=== PATIENT | female | born 1990 | race African-American/Black ===

== ENCOUNTER 2016-08-20 12:29 | Emergency (ER) | payer OTHER ==
[~2016-08-20] VITALS: Ht 160 cm; Wt 54.4 kg
[~2016-08-20 12:29] MED LIST: PREN1TAB27 PO
[2016-08-20 12:45] VITALS: BP 130/78
[2016-08-20] MEDS ORDERED: AZITHROMYCIN 250 MG TABLET. PO ONE (13:30)
[2016-08-20] MEDS ORDERED: cefTRIAXone IM 250 MG VIAL IM ONE (13:30)
[2016-08-20] MEDS ORDERED: metroNIDAZOLE 500 MG TABLET PO ONE (13:30)
--- NOTE | 2016-08-20 13:31 | PHYS DOC ---
Past Medical History Past Medical History: No Pertinent History Past Surgical History: Alcohol Use: Occasionally Drug Use: None Adult General Chief Complaint Chief Complaint: VAGINAL PROBLEM HPI HPI Patient is a 26 year old female with no significant medical history who presents today requesting to be tested and treated for STDs. Patient states the previous sexual partner called her and informed her he tested positive for chlamydia. Patient has no symptoms. Review of Systems Review of Systems Constitutional: Denies fever or chills [] Eyes: Denies change in visual acuity, redness, or eye pain [] HENT: Denies nasal congestion or sore throat [] Respiratory: Denies cough or shortness of breath [] Cardiovascular: No additional information not addressed in HPI [] GI: Denies abdominal pain, nausea, vomiting, bloody stools or diarrhea [] : STD testing and treatment Musculoskeletal: Denies back pain or joint pain [] Integument: Denies rash or skin lesions [] Neurologic: Denies headache, focal weakness or sensory changes [] Endocrine: Denies polyuria or polydipsia [] Current Medications Current Medications Current Medications Medications (Trade) Dose Ordered Sig/Evan Start Time Stop Time Status Last Admin Dose Admin Azithromycin (Zithromax) 1,000 mg 1X ONCE 08/20/16 13:30 08/20/16 13:31 DC 08/20/16 13:49 1,000 MG Ceftriaxone Sodium (Rocephin Im) 250 mg 1X ONCE 08/20/16 13:30 08/20/16 13:31 DC 08/20/16 13:50 250 MG Diphenhydramine HCl (Benadryl) 25 mg 1X ONCE 08/20/16 14:15 08/20/16 14:16 DC 08/20/16 13:49 25 MG Metronidazole (Flagyl) 2,000 mg 1X ONCE 08/20/16 13:30 08/20/16 13:31 DC 08/20/16 13:49 2,000 MG Allergies Allergies Allergies Coded Allergies Type Severity Reaction Last Updated Verified Penicillins Allergy Intermediate Itching 08/20/16 Yes Physical Exam Physical Exam Constitutional: Well developed, well nourished, no acute distress, non-toxic appearance. [] HENT: Normocephalic, atraumatic, bilateral external ears normal, oropharynx moist, no oral exudates, nose normal. [] Eyes: PERRLA, EOMI, conjunctiva normal, no discharge. [] Neck: Normal range of motion, no tenderness, supple, no stridor. [] Cardiovascular:Heart rate regular rhythm, no murmur [] Lungs & Thorax: Bilateral breath sounds clear to auscultation [] Abdomen: Bowel sounds normal, soft, no tenderness, no masses, no pulsatile masses. [] Pelvic exam External pelvic appears normal, cervix is closed, no CMT, no vaginal discharge. No adnexal tenderness. Skin: Warm, dry, no erythema, no rash. [] Back: No tenderness, no CVA tenderness. [] Extremities: No tenderness, no cyanosis, no clubbing, ROM intact, no edema. [] Neurologic: Alert and oriented X 3, normal motor function, normal sensory function, no focal deficits noted. [] Psychologic: Affect normal, judgement normal, mood normal. [] Current Patient Data Vital Signs Vital Signs Date Time Temp Pulse Resp B/P (MAP) Pulse Ox O2 Delivery O2 Flow Rate FiO2 08/20/16 12:45 98.4 67 16 99 Room Air 98.4 Lab Values Laboratory Tests Test 08/20/16 12:28 08/20/16 13:00 POC Urine HCG, Qualitative Hcg negative (Negative) Urine Collection Type Unknown Urine Color Yellow Urine Clarity Clear Urine pH 5.5 Urine Specific [place] 1.025 Urine Protein Negative mg/dL (NEG-TRACE) Urine Glucose (UA) Negative mg/dL (NEG) Urine Ketones (Stick) Negative mg/dL (NEG) Urine Blood Negative (NEG) Urine Nitrite Negative (NEG) Urine Bilirubin Negative (NEG) Urine Urobilinogen Dipstick 0.2 mg/dL (0.2 mg/dL) Urine Leukocyte Esterase Trace (NEG) Urine RBC 0 /HPF (0-2) Urine WBC Rare /HPF (0-4) Urine Squamous Epithelial Cells Mod /LPF Urine Bacteria 0 /HPF (0-FEW) Urine Mucus Marked /LPF Microbiology 08/20/16 Wet Prep - Final, Complete EKG EKG [] Radiology/Procedures Radiology/Procedures [] Course & Med Decision Making Course & Med Decision Making Pertinent Labs and Imaging studies reviewed. (See chart for details) Patient is in the ED requesting to be tested and treated for STDs because the previous sex or partner informed her he tested positive for chlamydia. Specimens were sent to lab. Negative urine hCG, she was given Flagyl, Rocephin and azithromycin. Wet prep with no acute findings. Negative urine hCG, urine analysis is negative for infection. Patient was discharged with education on STDs. She was provided return precautions. Dragon Disclaimer Dragon Disclaimer This electronic medical record was generated, in whole or in part, using a voice recognition dictation system. Departure Departure Impression: Primary Impression: Concern about STD in female without diagnosis Disposition: HOME, SELF-CARE Condition: STABLE Referrals: TARIQ MALONEY MD (PCP) Follow-up with the health department for further STD concerns Patient Instructions: Sexually Transmitted Disease, [id number] Additional Instructions: You were seen with STD concerns. You were treated prophylaxis for gonorrhea chlamydia and trichomonas in the ED. Your results will be back in 3 days. We will only call you if your results are positive. We highly recommend you follow- up with the health department for further STD concerns. Call all your partners let them know you were treated for STDs and ask them to seek treatment too. ALINA DOUGHERTY APRN August 20, 2016 13:31
[2016-08-20 14:05] LABS: BILIRUBIN,URINE NEGATIVE (NEG); GLUCOSE,URINE NEGATIVE (NEG); NITRITE,URINE NEGATIVE (NEG); PH,URINE 5.5; PROTEIN,URINE NEGATIVE (NEG-TRACE); UROBILINOGEN,URINE 0.2 mg/dL (0.2 mg/dL)
[2016-08-20] MEDS ORDERED: diphenhydrAMINE HCL 25 MG CAPSULE PO ONE (14:15)
[2016-08-20 14:18] LABS: BACTERIA,URINE 0 /HPF (0-FEW); RBC,URINE 0 /HPF (0-2); SQUAMOUS EPITHELIAL CELL,UR MOD /LPF; WBC,URINE RARE /HPF (0-4)
== END 2016-08-20 14:30 | disposition home or self-care (01) ==
LOC: ER 12:29
DX: Z20.2 Contact with and (suspected) exposure to infections with a predominantly sexual mode of transmission (principal); Z88.0 Allergy status to penicillin
CPT/HCPCS: 81001; 84703; 87491; 87591; 96372; 99284; J0696; Q0111; Q0144; Q0163; 81025

== ENCOUNTER 2018-04-21 07:59 | Emergency (ER) | payer OTHER ==
[~2018-04-21] VITALS: Ht 160 cm; Wt 72.6 kg
--- NOTE | 2018-04-21 08:26 | PHYS DOC ---
Past Medical History Past Medical History: No Pertinent History Past Surgical History: Alcohol Use: Occasionally Drug Use: None Adult General Chief Complaint Chief Complaint: CHEST WALL PAIN HPI HPI Patient is a 28 year old female who presents with left chest wall pain for the last 2 days. She states that it hurts worse when she was getting up from the couch. He states that she was seen 3 weeks ago for this at and was ended up admitted to adult psychiatric floor for depression. States she ate some hot chips and then laid down. Patient states his exam Pepcid that she is once today. Patient states that her naproxen machine take it she took Tylenol last night. Patient states she also has left arm pain that is an ache. Patient states right now the chest pain is still slightly there but the left arm ache is constant. Patient states that the pain has gotten better though. Review of Systems Review of Systems Constitutional: Denies fever or chills [] Eyes: Denies change in visual acuity, redness, or eye pain [] HENT: Denies nasal congestion or sore throat [] Respiratory: Denies cough or shortness of breath [] Cardiovascular: Left chest pain GI: Denies abdominal pain, nausea, vomiting, bloody stools or diarrhea [] : Denies dysuria or hematuria [] Musculoskeletal: Left arm ache Denies back pain or joint pain [] Integument: Denies rash or skin lesions [] Neurologic: Denies headache, focal weakness or sensory changes [] All other systems were reviewed and found to be within normal limits, except as documented in this note. Current Medications Current Medications Current Medications Medications (Trade) Dose Ordered Sig/[facility] Start Time Stop Time Status Last Admin Dose Admin Ketorolac Tromethamine (Toradol 30mg Vial) 30 mg 1X ONCE 04/21/18 08:30 04/21/18 08:31 DC 04/21/18 08:30 30 MG Multi-Ingredient Mouthwash/Gargle (Gi Cocktail) 20 ml 1X ONCE 04/21/18 08:30 04/21/18 08:31 DC 04/21/18 08:30 20 ML Allergies Allergies Allergies Coded Allergies Type Severity Reaction Last Updated Verified Penicillins Allergy Intermediate Itching 08/20/16 Yes Physical Exam Physical Exam Constitutional: Well developed, well nourished, no acute distress, non-toxic appearance. [] HENT: Normocephalic, atraumatic, bilateral external ears normal, oropharynx moist, no oral exudates, nose normal. [] Eyes: PERRLA, EOMI, conjunctiva normal, no discharge. [] Neck: Normal range of motion, no tenderness, supple, no stridor. [] Cardiovascular:Heart rate regular rhythm, no murmur [] Lungs & Thorax: Bilateral breath sounds clear to auscultation [] Abdomen: Bowel sounds normal, soft, no tenderness, no masses, no pulsatile masses. [] Skin: Warm, dry, no erythema, no rash. [] Back: No tenderness, no CVA tenderness. [] Extremities: No tenderness, no cyanosis, no clubbing, ROM intact, no edema. [] Neurologic: Alert and oriented X 3, normal motor function, normal sensory function, no focal deficits noted. [] Psychologic: Affect normal, judgement normal, mood normal. [] Current Patient Data Vital Signs Vital Signs Date Time Temp Pulse Resp B/P (MAP) Pulse Ox O2 Delivery O2 Flow Rate FiO2 04/21/18 08:05 98.2 70 18 117/69 (85) 99 Room Air 98.2 Lab Values Laboratory Tests Test 04/21/18 08:40 04/21/18 08:52 04/21/18 08:55 Urine Collection Type Void Urine Color Yellow Urine Clarity Clear Urine pH 6.5 Urine Specific [place] 1.020 Urine Protein Negative mg/dL (NEG-TRACE) Urine Glucose (UA) Negative mg/dL (NEG) Urine Ketones (Stick) Negative mg/dL (NEG) Urine Blood Negative (NEG) Urine Nitrite Negative (NEG) Urine Bilirubin Negative (NEG) Urine Urobilinogen Dipstick 0.2 mg/dL (0.2 mg/dL) Urine Leukocyte Esterase Negative (NEG) Urine RBC 0 /HPF (0-2) Urine WBC 1-4 /HPF (0-4) Urine Squamous Epithelial Cells Mod /LPF Urine Bacteria Few /HPF (0-FEW) Urine Mucus Mod /LPF Urine Opiates Screen Neg (NEG) Urine Methadone Screen Neg (NEG) Urine Barbiturates Neg (NEG) Urine Phencyclidine Screen Neg (NEG) Urine Amphetamine/Methamphetamine Neg (NEG) Urine Benzodiazepines Screen Neg (NEG) Urine Cocaine Screen Neg (NEG) Urine Cannabinoids Screen Neg (NEG) Urine Ethyl Alcohol Neg (NEG) POC Urine HCG, Qualitative Hcg negative (Negative) White Blood Count 3.6 x10^3/uL (4.0-11.0) L Red Blood Count 3.98 x10^6/uL (3.50-5.40) Hemoglobin 12.3 g/dL (12.0-15.5) Hematocrit 36.5 % (36.0-47.0) Mean Corpuscular Volume 92 fL (79-100) Mean Corpuscular Hemoglobin 31 pg (25-35) Mean Corpuscular Hemoglobin Concent 34 g/dL (31-37) Red Cell Distribution Width 13.9 % (11.5-14.5) Platelet Count 287 x10^3/uL (140-400) Neutrophils (%) (Auto) 51 % (31-73) Lymphocytes (%) (Auto) 38 % (24-48) Monocytes (%) (Auto) 6 % (0-9) Eosinophils (%) (Auto) 5 % (0-3) H Basophils (%) (Auto) 0 % (0-3) Neutrophils # (Auto) 1.8 x10^3uL (1.8-7.7) Lymphocytes # (Auto) 1.4 x10^3/uL (1.0-4.8) Monocytes # (Auto) 0.2 x10^3/uL (0.0-1.1) Eosinophils # (Auto) 0.2 x10^3/uL (0.0-0.7) Basophils # (Auto) 0.0 x10^3/uL (0.0-0.2) Sodium Level 140 mmol/L (136-145) Potassium Level 4.0 mmol/L (3.5-5.1) Chloride Level 102 mmol/L (98-107) Carbon Dioxide Level 28 mmol/L (21-32) Anion Gap 10 (6-14) Blood Urea Nitrogen 15 mg/dL (7-20) Creatinine 0.8 mg/dL (0.6-1.0) Estimated GFR (Cockcroft-Gault) 102.6 BUN/Creatinine Ratio 19 (6-20) Glucose Level 88 mg/dL (70-99) Calcium Level 9.2 mg/dL (8.5-10.1) Total Bilirubin 0.4 mg/dL (0.2-1.0) Aspartate Amino Transferase (AST) 21 U/L (15-37) Alanine Aminotransferase (ALT) 70 U/L (14-59) H Alkaline Phosphatase 75 U/L (46-116) Troponin I Quantitative < 0.017 ng/mL (0.000-0.055) Total Protein 7.3 g/dL (6.4-8.2) Albumin 4.0 g/dL (3.4-5.0) Albumin/Globulin Ratio 1.2 (1.0-1.7) Lipase 84 U/L (73-393) Laboratory Tests 04/21/18 08:55 Laboratory Tests 04/21/18 08:55 EKG EKG Sinus rhythm and no STEMI Interpretation Time: [address] Clarke Radiology/Procedures Radiology/Procedures Chest x-ray Impressions: [facility] [address] [place] [address] IMAGING REPORT Signed PATIENT: CAROLINA AARON ACCOUNT: [id number] : 1990 LOCATION: ER AGE: 28 SEX: F EXAM STATUS: PRE ER ORD. PHYSICIAN: YVONNE BRITO APRN REASON: chest pain PROCEDURE: CHEST PA & LATERAL CHEST PA LATERAL History: Chest pain since Wednesday Comparison: September 25, 2012 Findings: 2 views of the chest are submitted. There is no infiltrate, pneumothorax, or effusion. The cardiac silhouette is within normal limits in size. There is mild reverse S-shaped scoliosis of the thoracolumbar spine. Impression: 1. No acute radiographic abnormality is identified. Electronically signed by: Angelia Dempsey MD (04/21/2018 8:43 AM) [id number] DICTATED and SIGNED BY: ANGELIA DEMPSEY MD DATE: 04/21/18 0842 Course & Med Decision Making Course & Med Decision Making Patient is a 28 year old female who presents with left chest wall pain for the last 2 days. She states that it hurts worse when she was getting up from the couch. He states that she was seen 3 weeks ago for this at and was ended up admitted to adult psychiatric floor for depression. States she ate some hot chips and then laid down. Patient states his exam Pepcid that she is once today. Patient states that her naproxen machine take it she took Tylenol last night. Patient states she also has left arm pain that is an ache. Patient states right now the chest pain is still slightly there but the left arm ache is constant. Patient states that the pain has gotten better though. Alert and oriented. Skin pink warm and dry. Afebrile. Vital Signs are within normal limits. Mucous membranes are moist. Abdomen is soft and nontender. Chest pain is nonreproducible. She denies cough. Lungs are clear to auscultation in all lobes. Heart rate is regular without murmur. She denies any recent illness, smoking, drug use, any hormone use. There is no tenderness in her calves and no extremity swelling or pain. Patient is able try with a steady gait. She denies dizziness, shortness of air, numbness or tingling. PERRLA. Neurologically intact. Rates her pain 9 out of 10 and doesn't radiate. Patient denies nausea, vomiting, diaphoresis, diarrhea. PERC negative. EKG shows sinus rhythm. Chest x-ray shows no acute findings. Urine shows no infection and she is UCG negative. Blood work unremarkable. Patient has nonspecific chest pain and GERD. She should to stay aways from spicy or fried foods. Start taking Pepcid once in the morning and once in the evening. Follow up with primary care. Dean Disclaimer Dragon Disclaimer This electronic medical record was generated, in whole or in part, using a voice recognition dictation system. Departure Departure Impression: Primary Impression: Chest pain due to gastrointestinal reflux disease Disposition: 01 HOME, SELF-CARE Condition: STABLE Referrals: TARIQ MALONEY MD (PCP) Patient Instructions: Chest Pain (Nonspecific), Diet for Gastroesophageal Reflux Disease, Adult Additional Instructions: Call primary care for follow-up. Continue Pepcid one in the morning and one at night. Stay away from spicy or fried foods. YVONNE BRITO APRN Apr 21, 2018 08:26
[2018-04-21] MEDS ORDERED: LIDO:MAALOX 1:1 20 ML SINGLE DOSE. SWSW ONE (08:30)
[2018-04-21] MEDS ORDERED: KETOROLAC 30 MG/ML VIAL. IV ONE (08:30)
--- NOTE | 2018-04-21 08:47 | RAD ---
CHEST PA LATERAL History: Chest pain since Wednesday Comparison: September 25, 2012 Findings: 2 views of the chest are submitted. There is no infiltrate, pneumothorax, or effusion. The cardiac silhouette is within normal limits in size. There is mild reverse S-shaped scoliosis of the thoracolumbar spine. Impression: 1. No acute radiographic abnormality is identified. Electronically signed by: Guido Mcallister MD (04/21/2018 8:43 AM) [id number]
[2018-04-21 08:58] LABS: BILIRUBIN,URINE NEGATIVE (NEG); CLARITY,URINE CLEAR; COLOR,URINE YELLOW; NITRITE,URINE NEGATIVE (NEG); PH,URINE 6.5; PROTEIN,URINE NEGATIVE (NEG-TRACE); UROBILINOGEN,URINE 0.2 mg/dL (0.2 mg/dL)
[2018-04-21 09:07] LABS: BACTERIA,URINE FEW /HPF (0-FEW); RBC,URINE 0 /HPF (0-2); SQUAMOUS EPITHELIAL CELL,UR MOD /LPF
[2018-04-21 09:12] LABS: BARBITURATES NEG (NEG); BENZODIAZEPINES NEG (NEG); CANNABINOIDS NEG (NEG); COCAINE NEG (NEG); METHADONE NEG (NEG); OPIATES NEG (NEG); PHENCYCLIDINE NEG (NEG)
[2018-04-21 09:14] LABS: AMPHETAMINE/METHAMPHETAMINE NEG (NEG)
[2018-04-21 09:24] LABS: CALCIUM 9.2 mg/dL (8.5-10.1); CREATININE 0.8 mg/dL (0.6-1.0); GFR 102.6
[2018-04-21 09:28] LABS: BASO % 0 % (0-3); EOS # 0.2 x10^3/uL (0.0-0.7); EOS % 5 % (0-3); HEMATOCRIT 36.5 % (36.0-47.0); HEMOGLOBIN 12.3 g/dL (12.0-15.5); LYMPH # 1.4 x10^3/uL (1.0-4.8); LYMPH % 38 % (24-48); MEAN CORPUSCULAR HEMOGLOBIN 31 pg (25-35); MEAN CORPUSCULAR HGB CONC 34 g/dL (31-37); MEAN CORPUSCULAR VOLUME 92 fL (79-100); MONO # 0.2 x10^3/uL (0.0-1.1); MONO % 6 % (0-9); NEUT # 1.8 x10^3uL (1.8-7.7); NEUT % 51 % (31-73); PLATELET COUNT 287 x10^3/uL (140-400); RED BLOOD COUNT 3.98 x10^6/uL (3.50-5.40); RED CELL DISTRIBUTION WIDTH 13.9 % (11.5-14.5); WHITE BLOOD COUNT 3.6 x10^3/uL (4.0-11.0)
[2018-04-21 09:31] LABS: ALBUMIN/GLOBULIN RATIO 1.2 (1.0-1.7); TOTAL BILIRUBIN 0.4 mg/dL (0.2-1.0); TOTAL PROTEIN 7.3 g/dL (6.4-8.2)
[2018-04-21 10:05] VITALS: BP 115/69
--- NOTE | 2018-04-21 10:10 | EKG ---
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
== END 2018-04-21 10:28 | disposition home or self-care (01) ==
LOC: ER 07:59
DX: R07.89 Other chest pain (principal); K21.9 Gastro-esophageal reflux disease without esophagitis; M79.602 Pain in left arm; Z88.0 Allergy status to penicillin
CPT/HCPCS: 36415; 71046; 80053; 80307; 81001; 81025; 83690; 84484; 85025; 93005; 96374; 99284; J1885

== ENCOUNTER 2018-05-19 17:47 | Emergency (ER) | payer OTHER ==
[~2018-05-19] VITALS: Ht 160 cm; Wt 63.5 kg
[2018-05-19 18:05] VITALS: BP 126/74
[2018-05-19 18:20] LABS: AMPHETAMINE/METHAMPHETAMINE NEG (NEG); BARBITURATES NEG (NEG); BENZODIAZEPINES NEG (NEG); BILIRUBIN,URINE NEGATIVE (NEG); CANNABINOIDS NEG (NEG); CLARITY,URINE CLEAR; COCAINE NEG (NEG); COLOR,URINE YELLOW; METHADONE NEG (NEG); NITRITE,URINE NEGATIVE (NEG); OPIATES NEG (NEG); PHENCYCLIDINE NEG (NEG); PROTEIN,URINE 30 mg/dL (NEG-TRACE)
[2018-05-19 18:27] LABS: SQUAMOUS EPITHELIAL CELL,UR MANY /LPF
[2018-05-19 18:28] LABS: BACTERIA,URINE 0 /HPF (0-FEW)
[2018-05-19 18:39] LABS: BASO # 0.1 x10^3/uL (0.0-0.2); BASO % 1 % (0-3); EOS # 0.3 x10^3/uL (0.0-0.7); EOS % 4 % (0-3); HEMOGLOBIN 11.6 g/dL (12.0-15.5); LYMPH # 2.3 x10^3/uL (1.0-4.8); LYMPH % 37 % (24-48); MEAN CORPUSCULAR HEMOGLOBIN 30 pg (25-35); MEAN CORPUSCULAR HGB CONC 33 g/dL (31-37); MEAN CORPUSCULAR VOLUME 90 fL (79-100); MONO # 0.3 x10^3/uL (0.0-1.1); MONO % 6 % (0-9); NEUT # 3.2 x10^3uL (1.8-7.7); NEUT % 52 % (31-73); PLATELET COUNT 342 x10^3/uL (140-400); RED BLOOD COUNT 3.88 x10^6/uL (3.50-5.40); RED CELL DISTRIBUTION WIDTH 13.6 % (11.5-14.5); WHITE BLOOD COUNT 6.1 x10^3/uL (4.0-11.0)
[2018-05-19 18:48] LABS: CALCIUM 8.8 mg/dL (8.5-10.1); CREATININE 0.9 mg/dL (0.6-1.0); GFR 89.6; POTASSIUM 3.6 mmol/L (3.5-5.1)
[2018-05-19 18:56] LABS: ALBUMIN 3.9 g/dL (3.4-5.0); ALBUMIN/GLOBULIN RATIO 1.1 (1.0-1.7); TOTAL BILIRUBIN 0.2 mg/dL (0.2-1.0); TOTAL PROTEIN 7.3 g/dL (6.4-8.2)
--- NOTE | 2018-05-19 19:30 | RAD ---
Transabdominal and transvaginal ultrasound the pelvis. HISTORY: Bleeding, positive test, pain Transabdominal ultrasound was performed. There is retroflexion of the uterus. Uterus measures 8.5 x 4 x 5.3 cm. The endometrium is not thickened measuring 3 mm. There is no uterine mass. Right ovary measured 1.8 x 3 x 2 cm. left ovary measured 3 x 2 x 2.6 cm. There is free fluid in the cul-de-sac. Transvaginal imaging was performed for further evaluation. Again noted is fluid in the cul-de-sac. There is a tiny cystic focus in the endometrium which is nonspecific but could be an early gestation. Endometrium measured 6 mm transvaginally. The cystic structure was 5 x 3 x 3 mm Left ovary transvaginally measured 2.4 x 4.5 x 2.7 cm with multiple small follicles. There is flow in the left ovary with color imaging. Right ovary measured 2.7 x 4.1 x 2.2 cm with several small follicles. IMPRESSION: 1. Tiny cystic focus in the uterus. Follow-up would be necessary to determine if there is a viable gestation. 2. Normal ovaries. 3. Mild to moderate fluid in the cul-de-sac. Electronically signed by: Tommy Lo MD (05/19/2018 7:25 PM) [facility]
--- NOTE | 2018-05-19 19:45 | PHYS DOC ---
Past Medical History Past Medical History: Other Additional Past Medical Histor: Reflux. Past Surgical History: Alcohol Use: Occasionally Drug Use: None Adult General Chief Complaint Chief Complaint: ABDOMINAL PAIN HPI HPI Patient is a 28 year old female with no significant medical history 4 para 2, 1 miscarriage, currently per her statement who presents for vaginal bleeding in . Patient states she has not had a period since February 19, 2018, she states she has history of irregular periods. Patient states on Wednesday which is roughly 6 days ago she had intercourse and noted small amount of blood during intercourse, she states before then she had a positive home test. Patient denies any abdominal pain. She states she has some vaginal pain. Denies any nausea, vomiting denies any back pain. Patient denies any concerns for STDs. Review of Systems Review of Systems Constitutional: Denies fever or chills [] Eyes: Denies change in visual acuity, redness, or eye pain [] HENT: Denies nasal congestion or sore throat [] Respiratory: Denies cough or shortness of breath [] Cardiovascular: No additional information not addressed in HPI [] GI: Reports vaginal bleeding in . Denies abdominal pain, nausea, vomiting, bloody stools or diarrhea [] : Denies dysuria or hematuria [] Musculoskeletal: Denies back pain or joint pain [] Integument: Denies rash or skin lesions [] Neurologic: Denies headache, focal weakness or sensory changes All other systems were reviewed and found to be within normal limits, except as documented in this note. Allergies Allergies Allergies Coded Allergies Type Severity Reaction Last Updated Verified Penicillins Allergy Intermediate Itching 08/20/16 Yes Physical Exam Physical Exam Constitutional: Well developed, well nourished, no acute distress, non-toxic appearance. [] HENT: Normocephalic, atraumatic, bilateral external ears normal, oropharynx moist, no oral exudates, nose normal. [] Eyes: PERRLA, EOMI, conjunctiva normal, no discharge. [] Neck: Normal range of motion, no tenderness, supple, no stridor. [] Cardiovascular:Heart rate regular rhythm, no murmur [] Lungs & Thorax: Bilateral breath sounds clear to auscultation [] Abdomen: Bowel sounds normal, soft, no tenderness, no masses, no pulsatile masses. [] Pelvic exam External pelvic appears normal, cervix is closed, no CMT, no adnexal tenderness , no bleeding. Trace amount of white discharge in the vaginal vault. Skin: Warm, dry, no erythema, no rash. [] Back: No tenderness, no CVA tenderness. [] Extremities: No tenderness, no cyanosis, no clubbing, ROM intact, no edema. [] Neurologic: Alert and oriented X 3, normal motor function, normal sensory function, no focal deficits noted. [] Psychologic: Affect normal, judgement normal, mood normal. [] Current Patient Data Vital Signs Vital Signs Date Time Temp Pulse Resp B/P (MAP) Pulse Ox O2 Delivery O2 Flow Rate FiO2 05/19/18 18:05 98.1 77 20 126/74 (91) 100 Room Air 98.1 Lab Values Laboratory Tests Test 05/19/18 18:00 05/19/18 18:03 05/19/18 18:30 Urine Collection Type Unknown Urine Color Yellow Urine Clarity Clear Urine pH 8.0 Urine Specific [place] 1.025 Urine Protein 30 mg/dL (NEG-TRACE) Urine Glucose (UA) Negative mg/dL (NEG) Urine Ketones (Stick) Negative mg/dL (NEG) Urine Blood Small (NEG) Urine Nitrite Negative (NEG) Urine Bilirubin Negative (NEG) Urine Urobilinogen Dipstick 1.0 mg/dL (0.2 mg/dL) Urine Leukocyte Esterase Small (NEG) Urine RBC 6-10 /HPF (0-2) Urine WBC 11-20 /HPF (0-4) Urine Squamous Epithelial Cells Many /LPF Urine Bacteria 0 /HPF (0-FEW) Urine Mucus Marked /LPF Urine Opiates Screen Neg (NEG) Urine Methadone Screen Neg (NEG) Urine Barbiturates Neg (NEG) Urine Phencyclidine Screen Neg (NEG) Urine Amphetamine/Methamphetamine Neg (NEG) Urine Benzodiazepines Screen Neg (NEG) Urine Cocaine Screen Neg (NEG) Urine Cannabinoids Screen Neg (NEG) Urine Ethyl Alcohol Neg (NEG) POC Urine HCG, Qualitative Hcg negative (Negative) White Blood Count 6.1 x10^3/uL (4.0-11.0) Red Blood Count 3.88 x10^6/uL (3.50-5.40) Hemoglobin 11.6 g/dL (12.0-15.5) L Hematocrit 35.0 % (36.0-47.0) L Mean Corpuscular Volume 90 fL (79-100) Mean Corpuscular Hemoglobin 30 pg (25-35) Mean Corpuscular Hemoglobin Concent 33 g/dL (31-37) Red Cell Distribution Width 13.6 % (11.5-14.5) Platelet Count 342 x10^3/uL (140-400) Neutrophils (%) (Auto) 52 % (31-73) Lymphocytes (%) (Auto) 37 % (24-48) Monocytes (%) (Auto) 6 % (0-9) Eosinophils (%) (Auto) 4 % (0-3) H Basophils (%) (Auto) 1 % (0-3) Neutrophils # (Auto) 3.2 x10^3uL (1.8-7.7) Lymphocytes # (Auto) 2.3 x10^3/uL (1.0-4.8) Monocytes # (Auto) 0.3 x10^3/uL (0.0-1.1) Eosinophils # (Auto) 0.3 x10^3/uL (0.0-0.7) Basophils # (Auto) 0.1 x10^3/uL (0.0-0.2) Maternal Serum HCG Beta Subunit < 1 mIU/mL (0-5) Sodium Level 141 mmol/L (136-145) Potassium Level 3.6 mmol/L (3.5-5.1) Chloride Level 103 mmol/L (98-107) Carbon Dioxide Level 27 mmol/L (21-32) Anion Gap 11 (6-14) Blood Urea Nitrogen 10 mg/dL (7-20) Creatinine 0.9 mg/dL (0.6-1.0) Estimated GFR (Cockcroft-Gault) 89.6 BUN/Creatinine Ratio 11 (6-20) Glucose Level 91 mg/dL (70-99) Calcium Level 8.8 mg/dL (8.5-10.1) Total Bilirubin 0.2 mg/dL (0.2-1.0) Aspartate Amino Transferase (AST) 21 U/L (15-37) Alanine Aminotransferase (ALT) 37 U/L (14-59) Alkaline Phosphatase 83 U/L (46-116) Total Protein 7.3 g/dL (6.4-8.2) Albumin 3.9 g/dL (3.4-5.0) Albumin/Globulin Ratio 1.1 (1.0-1.7) Ethyl Alcohol Level < 10 mg/dL (0-10) Laboratory Tests 05/19/18 18:30 Laboratory Tests 05/19/18 18:30 Microbiology 05/19/18 Wet Prep - Final, Complete EKG EKG [] Radiology/Procedures Radiology/Procedures []PROCEDURE: PELVIS W/TV Transabdominal and transvaginal ultrasound the pelvis. HISTORY: Bleeding, positive test, pain Transabdominal ultrasound was performed. There is retroflexion of the uterus. Uterus measures 8.5 x 4 x 5.3 cm. The endometrium is not thickened measuring 3 mm. There is no uterine mass. Right ovary measured 1.8 x 3 x 2 cm. left ovary measured 3 x 2 x 2.6 cm. There is free fluid in the cul-de-sac. Transvaginal imaging was performed for further evaluation. Again noted is fluid in the cul-de-sac. There is a tiny cystic focus in the endometrium which is nonspecific but could be an early gestation. Endometrium measured 6 mm transvaginally. The cystic structure was 5 x 3 x 3 mm Left ovary transvaginally measured 2.4 x 4.5 x 2.7 cm with multiple small follicles. There is flow in the left ovary with color imaging. Right ovary measured 2.7 x 4.1 x 2.2 cm with several small follicles. IMPRESSION: 1. Tiny cystic focus in the uterus. Follow-up would be necessary to determine if there is a viable gestation. 2. Normal ovaries. 3. Mild to moderate fluid in the cul-de-sac. Electronically signed by: Radames Valencia MD (05/19/2018 7:25 PM) [facility] DICTATED and SIGNED BY: RADAMES VALENCIA MD DATE: 05/19/181920 Course & Med Decision Making Course & Med Decision Making Pertinent Labs and Imaging studies reviewed. (See chart for details) This is a 28-year-old female patient presented to the ED today complaining of vaginal bleeding in see history of present illness. Patient states she did a test a couple days ago which was positive. Six days ago she had intercourse and had bleeding during intercourse, bleeding has stopped. Pelvic exam in the ED she has no bleeding. Urine hCG is negative, beta hCG is< 1. CBC with normal WBC, Hgb 11.6 Hct 35.0, CMP with no acute findings. Wet prep noted for BV. Discharge and Flagyl. Blood group O positive. Urine noted for small amount of leukocytes, discharged on [facility] OB ultrasound-Tiny cystic focus in the uterus. Follow-up would be necessary to determine if there is a viable gestation.Normal ovaries.Mild to moderate fluid in the cul-de-sac. Patient given results F/u with OB in 2 days. Patient was provided return precautions and discharged in stable condition. Dragon Disclaimer Dragon Disclaimer This electronic medical record was generated, in whole or in part, using a voice recognition dictation system. Departure Departure Impression: Primary Impression: Dysfunctional uterine bleeding Additional Impressions: Bacterial vaginosis Urinary tract infection Disposition: HOME, SELF-CARE Condition: STABLE Referrals: UNKNOWN PCP NAME (PCP) MARITZA MOJICA MD Follow up in 2 days Patient Instructions: Bacterial Vaginosis, Urinary Tract Infection, Uterine Bleeding, Dysfunctional Additional Instructions: You were evaluated in the ER. Your urine test is negative, your beta/ blood test is <1, please follow up with your [facility] in 2 days for serial beta hCGs. Come back to the ED at any point symptoms worsen. Complete the prescribed antibiotics. Scripts Nitrofurantoin Monohyd/M-Cryst (MACROBID 100 MG CAPSULE) 100 Mg Capsule 1 CAP PO BID, #14 CAP Prov: ALINA DOUGHERTY APRN 05/19/18 Metronidazole (FLAGYL) 500 Mg Tablet 1 TAB PO BID, #14 TAB Prov: ALINA DOUGHERTY APRN 05/19/18 Problem Qualifiers Additional Impressions: Urinary tract infection Urinary tract infection type: site unspecified Hematuria presence: without hematuria Qualified Codes: N39.0 - Urinary tract infection, site not specified ALINA DOUGHERTY APRN May 19, 2018 19:45
[2018-05-19] MEDS ORDERED: NITR100C62 PO (20:03)
[2018-05-19] MEDS ORDERED: METR500T PO (20:03)
[2018-05-23 13:19] LABS: GC PROBE Negative (Negative)
== END 2018-05-19 20:15 | disposition home or self-care (01) ==
LOC: ER 17:47
DX: N39.0 Urinary tract infection, site not specified (principal); N76.0 Acute vaginitis; B96.89 Other specified bacterial agents as the cause of diseases classified elsewhere; N93.8 Other specified abnormal uterine and vaginal bleeding; K21.9 Gastro-esophageal reflux disease without esophagitis; Z88.0 Allergy status to penicillin
CPT/HCPCS: 36415; 76830; 76856; 80053; 80307; 81001; 81025; 84702; 85025; 86850; 86900; 86901; 87086; 87491; 87591; 99284; G0480; Q0111